=== PATIENT | male | born 1985 | race African-American/Black ===

== ENCOUNTER 2018-06-25 20:34 | Emergency (ER) | payer SELFPAY ==
[~2018-06-25] VITALS: Ht 172.7 cm; Wt 105.0 kg
[2018-06-25] MEDS ORDERED: NAPROXEN 500 MG TABLET PO STA (21:15)
[2018-06-25] MEDS ORDERED: HYDROcodone/APAP 5/325MG 1 TAB TABLET PO ONE (21:15)
--- NOTE | 2018-06-25 21:15 | PHYS DOC ---
Adult General Chief Complaint Chief Complaint: DENTAL PROBLEM HPI HPI Patient is a 32 year old male presenting with mild to moderate left lower gum dental pain that began this morning. Patient denies any fever or trismus. He does not have a dentist. Patient is on live recording on his phone and will not turn it off. Review of Systems Review of Systems Constitutional: Denies fever or chills [] Eyes: Denies change in visual acuity, redness, or eye pain [] HENT: Reports dental pain. Denies nasal congestion or sore throat [] Musculoskeletal: Denies back pain or joint pain [] Integument: Denies rash or skin lesions [] Neurologic: Denies headache, focal weakness or sensory changes [] All other systems were reviewed and found to be within normal limits, except as documented in this note. Current Medications Current Medications Current Medications Medications (Trade) Dose Ordered Sig/Sonya Start Time Stop Time Status Last Admin Dose Admin Acetaminophen/ Hydrocodone Bitart (Lortab 5/325) 2 tab 1X ONCE 06/25/18 21:15 06/25/18 21:16 UNV Amoxicillin (Amoxil) 500 mg 1X ONCE 06/25/18 21:30 06/25/18 21:31 UNV Naproxen (Naprosyn) 500 mg 1X STAT 06/25/18 21:15 06/25/18 21:16 UNV Allergies Allergies Allergies Coded Allergies Type Severity Reaction Last Updated Verified No Known Drug Allergies 06/25/18 No Physical Exam Physical Exam Constitutional: Well developed, well nourished, no acute distress, non-toxic appearance. [] HENT: Normocephalic, atraumatic, bilateral external ears normal, oropharynx moist, no oral exudates, nose normal. [] Left lower wisdom tooth is broken and has dental caries. No gum erythema. Skin: Warm, dry, no erythema, no rash. [] Back: No tenderness, no CVA tenderness. [] Extremities: No tenderness, no cyanosis, no clubbing, ROM intact, no edema. [] Neurologic: Alert and oriented X 3, normal motor function, normal sensory function, no focal deficits noted. [] Psychologic: Affect normal, judgement normal, mood normal. [] EKG EKG [] Radiology/Procedures Radiology/Procedures [] Course & Med Decision Making Course & Med Decision Making Pertinent Labs and Imaging studies reviewed. (See chart for details) This is a 32-year-old male patient presented to the ED today with dental cavities and dental caries. Will be discharged with amoxicillin for 10 days. Provided dental list for follow-up. Cornel Disclaimer Cornel Disclaimer This electronic medical record was generated, in whole or in part, using a voice recognition dictation system. Departure Departure Impression: Primary Impression: Dentalgia Additional Impressions: Dental cavities Dental caries Disposition: HOME, SELF-CARE Condition: STABLE Patient Instructions: Dental Caries, Dental Pain Additional Instructions: You were evaluated in the emergency room for dental pain. Please contact one of the dentists from the list provided and follow-up as soon as possible. Scripts Naproxen (NAPROXEN) 500 Mg Tablet.dr 1 TAB PO BID, #60 TAB 2 Refills Prov: DINORA COWART APRN 06/25/18 Hydrocodone/Apap 5-325 (NORCO 5-325 TABLET) 1 Each Tablet 1-2 TAB PO Q6HRS, #20 TAB Prov: DINORA COWART APRN 06/25/18 Amoxicillin (AMOXICILLIN) 500 Mg Tablet 1 TAB PO BID, #20 TAB Prov: DINORA COWART APRN 06/25/18 Problem Qualifiers DINORA COWART APRN Jun 25, 2018 21:15
[2018-06-25] MEDS ORDERED: AMOX500T PO (21:25)
[2018-06-25] MEDS ORDERED: HYDR-3164 PO (21:25)
[2018-06-25] MEDS ORDERED: NAPR500T8 PO (21:25)
[2018-06-25] MEDS ORDERED: AMOXICILLIN 250 MG CAPSULE. PO ONE (21:30)
[2018-06-25 21:35] VITALS: BP 136/78
== END 2018-06-25 21:53 | disposition home or self-care (01) ==
LOC: ER 20:34
DX: K02.9 Dental caries, unspecified (principal)
CPT/HCPCS: 99284